=== PATIENT | female | born 1960 | race Caucasian/White ===

== ENCOUNTER 2020-07-25 14:21 | Day surgery (SDC) | payer MEDICARE ==
[2020-07-25] MEDS ORDERED: Sodium Chloride 0.9(Preservative Free) 10 ML IJ ONE (14:22)
[2020-07-25] MEDS ORDERED: Xylocaine 1% Vial 30 ML PF IJ ONE (14:22)
[2020-07-25] MEDS ORDERED: Depo-Medrol 40 MG/ML IM ONE (14:22)
--- NOTE | 2020-07-25 16:23 | XRAY ---
Indication: Lumbar SHAUNA. Intraoperative fluoroscopy was provided for 15 seconds. 2 digital spot images submitted for interpretation demonstrates posterior midline needle tip projecting just posterior to the lumbosacral interspace. Small amount of contrast injected for needle tip placement. Correlate with intraoperative findings/report.
--- NOTE | 2020-07-25 16:38 | XRAY ---
15 seconds fluoroscopy time in surgery for lumbar SHAUNA.
== END 2020-07-25 16:18 | disposition home or self-care (01) ==
LOC: SDC-PAIN 14:21
PROVIDERS: ATTEND Psychiatry & Neurology Pain Medicine
DX: M54.16 Radiculopathy, lumbar region (principal); I10 Essential (primary) hypertension; J45.909 Unspecified asthma, uncomplicated; J44.9 Chronic obstructive pulmonary disease, unspecified; I48.91 Unspecified atrial fibrillation; Z79.899 Other long term (current) drug therapy
CPT/HCPCS: 72100; 77003; J1030; J2001

== ENCOUNTER 2021-04-10 13:31 | Day surgery (SDC) | payer MEDICARE ==
[2021-04-10] MEDS ORDERED: Depo-Medrol 40 MG/ML IM ONE (13:32)
[2021-04-10] MEDS ORDERED: Decadron 4 MG INJ IV ONE (13:32)
[2021-04-10] MEDS ORDERED: Sodium Chloride 0.9(Preservative Free) 10 ML IJ ONE (13:32)
[2021-04-10] MEDS ORDERED: Xylocaine 1% Vial 30 ML PF IJ ONE (13:32)
[2021-04-10] MEDS ORDERED: DIPRIVAN 200 MG/20 ML IV ONE ×2 (15:51→16:16)
[2021-04-10] MEDS ORDERED: Lactated Ringers 1,000 ML IV ONE (15:59)
--- NOTE | 2021-04-10 17:38 | XRAY ---
Indication: Bilateral piriformis muscle injections. Intraoperative fluoroscopy provided for 21 seconds. 2 digital spot images submitted for interpretation demonstrates posterior needle tip projecting over the left and right piriformis muscles. Small amount of contrast injected for both needle tip placement. Correlate with intraoperative findings/report.
--- NOTE | 2021-04-10 17:38 | XRAY ---
Indication: Caudal SHAUNA. Intraoperative fluoroscopy provided for 50 seconds. Single digital spot images submitted for interpretation demonstrates midline posterior needle tip projecting mid-sacrum. Small amount of contrast injected for needle tip placement. Correlate with intraoperative findings/report.
--- NOTE | 2021-04-11 09:12 | XRAY ---
50 seconds fluoroscopy time in surgery for caudal SHAUNA.
--- NOTE | 2021-04-11 09:12 | XRAY ---
21 seconds fluoroscopy time in surgery for bilateral piriformis muscle injections.
== END 2021-04-10 16:38 | disposition home or self-care (01) ==
LOC: SDC-PAIN 13:31
PROVIDERS: ATTEND Psychiatry & Neurology Pain Medicine
DX: M54.16 Radiculopathy, lumbar region (principal); M76.01 Gluteal tendinitis, right hip; F41.9 Anxiety disorder, unspecified; F43.29 Adjustment disorder with other symptoms; J45.909 Unspecified asthma, uncomplicated; I10 Essential (primary) hypertension; M19.90 Unspecified osteoarthritis, unspecified site; J44.9 Chronic obstructive pulmonary disease, unspecified; I48.91 Unspecified atrial fibrillation; H40.9 Unspecified glaucoma; Z79.899 Other long term (current) drug therapy
CPT/HCPCS: 20552; 62323; 72202; 72220; 76942; 77002; 77003; J1030; J1100; J2001; J2704; Q9966

== ENCOUNTER 2021-06-12 11:24 | Day surgery (SDC) | payer MEDICARE ==
[2021-06-12] MEDS ORDERED: Decadron 4 MG INJ IV ONE (11:25)
[2021-06-12] MEDS ORDERED: Xylocaine 1% Vial 30 ML PF IJ ONE (11:25)
[2021-06-12] MEDS ORDERED: BUPIVACAINE 0.5% VIAL IJ ONE (11:25)
[2021-06-12] MEDS ORDERED: Depo-Medrol 40 MG/ML IM ONE (11:25)
[2021-06-12] MEDS ORDERED: DIPRIVAN 200 MG/20 ML IV ONE (12:53)
[2021-06-12] MEDS ORDERED: Lactated Ringers 1,000 ML IV ONE (15:55)
--- NOTE | 2021-06-13 11:53 | XRAY ---
36 seconds of fluoroscopy was used in surgery for bilateral SI joint injections and a right piriformis injection.
--- NOTE | 2021-06-16 00:16 | XRAY ---
Indication: Bilateral SI joint and right piriformis injections. Intraoperative fluoroscopy was provided for 36 seconds. 2 lateral digital spot images submitted for interpretation demonstrate posterior spinal needle tips projected over the expected course of the sacroiliac joints. A third digital spot image reveals a posterior needle tip projected over the expected right piriformis muscle. A small amount contrast has been injected for needle placement. Correlate with intraoperative findings/report.
== END 2021-06-12 13:20 | disposition home or self-care (01) ==
LOC: SDC-PAIN 11:24
PROVIDERS: ATTEND Psychiatry & Neurology Pain Medicine
DX: M46.1 Sacroiliitis, not elsewhere classified (principal); M79.18 Myalgia, other site; E11.9 Type 2 diabetes mellitus without complications; Z79.899 Other long term (current) drug therapy
CPT/HCPCS: 20552; 27096; 72202; 77002; 82947; J1030; J1100; J2001; J2704; Q9966; G0260

== ENCOUNTER 2021-07-24 10:25 | Day surgery (SDC) | payer MEDICARE ==
[2021-07-24] MEDS ORDERED: BUPIVACAINE 0.5% VIAL IJ ONE (10:26)
[2021-07-24] MEDS ORDERED: Depo-Medrol 40 MG/ML IM ONE (10:26)
[2021-07-24] MEDS ORDERED: Lactated Ringers 1,000 ML IV ONE (10:41)
[2021-07-24] MEDS ORDERED: DIPRIVAN 200 MG/20 ML IV ONE ×2 (11:53→12:12)
--- NOTE | 2021-07-24 13:57 | XRAY ---
27 seconds fluoroscopy time in surgery for bilateral intra-articular injections of the hips.
--- NOTE | 2021-07-24 13:58 | XRAY ---
Indication: Bilateral hip injection. Intraoperative fluoroscopy provided for 27 seconds. 2 digital spot images submitted for interpretation demonstrates needle tip projecting lateral to the left and right femur necks. Small amount of contrast injected for both needle tip placement. Correlate with intraoperative findings/report.
== END 2021-07-24 12:37 ==
LOC: SDC-PAIN 10:25
PROVIDERS: ATTEND Psychiatry & Neurology Pain Medicine
DX: M16.0 Bilateral primary osteoarthritis of hip (principal); E11.9 Type 2 diabetes mellitus without complications; Z79.899 Other long term (current) drug therapy
CPT/HCPCS: 20610; 73521; 77002; 82947; J1030; J2704; Q9966